=== PATIENT | female | born 1990 | race American Indian/Alaskan Native ===

== ENCOUNTER 2016-12-21 14:43 | Emergency (ER) | payer SELFPAY ==
[2016-12-21] MEDS ORDERED: NACL 0.9% 1000 ML 1,000 ML IV ONE (15:21)
[2016-12-21 15:54] LABS: Bilirubin,Urine NEG (Negative); Blood,Urine NEG (Negative); Ketones,Urine NEG (Negative); Leukocyte Esterase,Urine LG (Negative); Mucus,Urine FEW /HPF; Nitrite,Urine NEG (Negative); Protein,Urine <15 mg/dL mg/dL (Negative); Urobilinogen,Urine < 2.0 mg/dL (<2.0)
[2016-12-21 16:00] LABS: Basophils % (Auto) 0.3 % (0.0-1.8); Eosinophils % (Auto) 1.1 % (0.0-4.3); Hemoglobin 12.7 gm/dl (10.1-14.3); Mean Corpuscular HGB Conc 34 % (30-34); Mean Corpuscular Hemoglobin 31 pg (28-32); Mean Corpuscular Volume 92 fl (79-97); Platelet Count 217 K/mm3 (140-440); Red Blood Count 4.14 M/mm3 (3.65-5.03); Red Cell Distribution Width 12.9 % (13.2-15.2); White Blood Count 9.2 K/mm3 (4.5-11.0)
[2016-12-21 16:16] LABS: Alanine Aminotransferase 20 units/L (7-56); Albumin 3.8 g/dL (3.9-5); Albumin/Globulin Ratio 1.2 %; Alkaline Phosphatase 69 units/L (35-129); Anion Gap 16 mmol/L; Blood Urea Nitrogen 6 mg/dL (7-17); Calcium 9.3 mg/dL (8.4-10.2); Carbon Dioxide 22 mmol/L (22-30); Creatine Kinase 115 units/L (30-135); Glucose 76 mg/dL (65-100); Potassium 3.8 mmol/L (3.6-5.0); Sodium 134 mmol/L (137-145); Total Protein 7.1 g/dL (6.3-8.2)
[2016-12-21] MEDS ORDERED: KEPPRA 1,000 MG in D5W 100 ML IV ONE ×2 (16:25→16:32)
--- NOTE | 2016-12-21 16:25 | Emergency Department Report ---
<JIM CHRISTIE - Last Filed: 12/21/16 21:25> ED General Adult HPI - General Chief complaint: Seizure Stated complaint: SEIZURE Time Seen by Provider: 12/21/16 15:21 - Related Data Previous Rx's Medication Instructions Recorded Last Taken Type levETIRAcetam [Keppra TAB] 1,000 mg PO BID #28 tab 12/21/16 Unknown Rx Allergies Allergy/AdvReac Type Severity Reaction Status Date / Time acetaminophen [From NyQuil] Allergy Unknown Verified 12/21/16 15:16 dextromethorphan HBr Allergy Unknown Verified 12/21/16 15:16 [From NyQuil] doxylamine succinate Allergy Unknown Verified 12/21/16 15:16 [From NyQuil] guaifenesin [From Robitussin] Allergy Unknown Verified 12/21/16 15:16 phenytoin sodium Allergy Unknown Verified 12/21/16 15:16 [From Dilantin] phenytoin sodium extended Allergy Unknown Verified 12/21/16 15:16 [From Dilantin] pseudoephedrine HCl Allergy Unknown Verified 12/21/16 15:16 [From NyQuil] ED Review of Systems ROS: Stated complaint: SEIZURE Other details as noted in HPI ED Past Medical Hx - Medications Home Medications: Home Medications Medication Instructions Recorded Confirmed Last Taken Type levETIRAcetam [Keppra TAB] 1,000 mg PO BID #28 tab 12/21/16 Unknown Rx ED Course Vital Signs 12/21/16 12/21/16 12/21/16 15:00 16:02 16:03 Temperature 98.4 F 98.7 F Pulse Rate 103 H 97 H Respiratory 18 16 16 Rate Blood Pressure 90/62 Blood Pressure 94/60 [Left] O2 Sat by Pulse 98 100 100 Oximetry 12/21/16 21:46 Temperature Pulse Rate 95 H Respiratory 16 Rate Blood Pressure Blood Pressure 110/62 [Left] O2 Sat by Pulse 100 Oximetry ED Medical Decision Making - Lab Data Result diagrams: 12/21/16 15:46 12/21/16 15:46 - Radiology Data Radiology results: report reviewed (CT angiogram chest: No acute findings, no PE ) Critical care attestation.: If time is entered above; I have spent that time in minutes in the direct care of this critically ill patient, excluding procedure time. ED Disposition Clinical Impression: Chest pain in adult, Seizure disorder Disposition: DC- TO HOME OR SELFCARE Condition: Stable Instructions: Chest Pain (ED), Recurrent Seizures Adult (ED) Prescriptions: levETIRAcetam [Keppra TAB] 1,000 mg PO BID #28 tab Referrals: PRIMARY CARE, [Primary Care Provider] - 2-3 Days YOSI-JONNATHAN RODRIGUEZ MD [Staff Physician] - 2-3 Days CATARCHITO BURNS MD [Staff Physician] - 2-3 Days LEWIS MCNEILL MD [Staff Physician] - 2-3 Days <VIKTORIYA CAPONE P - Last Filed: 12/22/16 19:39> ED General Adult HPI - General Source: EMS Mode of arrival: Stretcher Limitations: No Limitations - History of Present Illness Initial comments: Patient with family reports that she experienced 3 seizures today generalized shaking. patient reports non-compliant with Keppra. Reports that she is also. Reports that she has no provider here in [place] and moved to the area from [facility] in August. Reports that she traveled to [place] by vehicle 12 hour commute. -: Gradual, hour(s) Location: chest (reports that she is having chest pain) Radiation: non-radiation Severity scale (0 -10): 2 Quality: aching Consistency: intermittent Improves with: none Worsens with: none Associated Symptoms: chest pain, cough, seizure (3 episodes today). denies: confusion, diaphoresis, fever/chills, headaches, loss of appetite, malaise, nausea/vomiting, rash, shortness of breath, syncope, weakness ED Review of Systems Other: GENERAL: No weight change, fatigue, weakness, fever, chills, or night sweats SKIN: No changes in skin or hair, no itching, no rashes, no jaundice HEAD: No trauma, headache, or visual changes EYES: No blurriness, tearing, itching, acute visual loss, conjunctival discoloration, or scleral icterus EARS: No hearing loss, tinnitus, vertigo, or earache NOSE: runny nose MOUTH: No bleeding gums, hoarseness, sore throat, or swelling CARDIAC: chest pain RESPIRATORY: No shortness of breath, wheeze, cough, sputum production, hemoptysis, pneumonia, asthma, bronchitis, or emphysema GI: No change in appetite, nausea, vomiting, dysphagia, change in bowel frequency, diarrhea, constipation, bleeding, hematemesis, melena, hematochezia, or abdominal pain URINARY: No frequency, urgency, polyuria, dysuria, hematuria, or incontinence MUSCULOSKELETAL: No muscle weakness, joint stiffness, decrease in range of motion, redness, swelling, tenderness NEUROLOGIC: seizures HEMATOLOGIC: No anemia, easy bruising, bleeding, petechiae, or purpura ENDOCRINE: No hot or cold intolerance, sweating, polyuria, polydipsia or, polyphagia no thyroid problems PSYCHIATRIC: No change in mood, no anxiety, no depression ED Past Medical Hx - Past Medical History Previous Medical History?: Yes Hx Sickle Cell Disease: Yes Hx Seizures: Yes Hx Psychiatric Treatment: Yes (bi polar) Hx Asthma: Yes - Surgical History Past Surgical History?: No - Social History Smoking Status: Current Every Day Smoker Substance Use Type: None ED Physical Exam - General Limitations: No Limitations - Other Other exam information: GENERAL: Patient in no acute distress HEAD: Normocephalic, atraumatic EYES: PERRLA, EOM intact, no scleral icterus, no conjunctival hemorrhage, visual duffy and acuity wnl NOSE: No tenderness, discharge, sinus tenderness MOUTH: No erythema, bleeding, exudate HEART: Regular rate and rhythm, no murmur, S1-S2 are auscultated, pulses are symmetric LUNGS: No wheezing, rales, rhonchi, bilateral breath sounds ABDOMEN: Normal bowel sounds, no tenderness, no rebound, no guarding, no masses , no CVA tenderness MUSCULOSKELETAL: Normal joint range of motion, no redness, no swelling, no tenderness NEUROLOGIC: GCS 15, Alert and Oriented x3, Cranial nerves intact, normal sensation, normal strength, normal gait, no cerebellar deficit PSYCHIATRIC: No homicidal or suicidal ideation, no anxiety, no depression, no hallucinations SKIN: Skin is warm and dry, no wounds, no rashes ED Medical Decision Making - Lab Data Result diagrams: 12/21/16 15:46 12/21/16 15:46 - EKG Data Interpretation: no acute changes - Radiology Data Radiology results: report reviewed - Medical Decision Making At 1625 Dr. Mcneill OB recommends Keppra safe in . At 1842 Dr. Mcneill OB recommends CTA chest examination for evaluation possible Pulmonary Embolism in patient. Reports V/Q scan no longer recommended and does not fully evaluate for PE. CTA pending. If negative patient stable for discharge. ED Disposition Is pt being admited?: No
[2016-12-21] MEDS ORDERED: KEPPRA 1,000 MG/NS 0.75% 100ML 1,000 MG/100 ML BAG IV ONE ×2 (17:00→17:57)
[2016-12-21] MEDS ORDERED: BENADRYL ONE (18:11)
[2016-12-21] MEDS ORDERED: DELTASONE ONE (18:12)
[2016-12-21] MEDS ORDERED: DELTASONE PO ONE (18:13)
[2016-12-21] MEDS ORDERED: BENADRYL IV ONE (18:18)
[2016-12-21] MEDS ORDERED: NACL ONE (19:28)
--- NOTE | 2016-12-21 20:30 | Cat Scan Report ---
FINAL REPORT EXAM: CT ANGIO CHEST HISTORY: Pain, chest pain TECHNIQUE: High-resolution helical axial images were obtained of the chest during intravenous administration of iodinated contrast. Images are reconstructed in the sagittal and coronal planes. PRIORS: None. FINDINGS: There is no evidence of pulmonary embolism, the pulmonary arteries opacify normally. The heart and thoracic aorta appear normal. The lungs are clear. Images through the upper abdomen are unremarkable. The bones are unremarkable. IMPRESSION: 1. No evidence of pulmonary embolism. 2. No acute findings in the chest
[2016-12-21 21:46] VITALS: BP 110/62
== END 2016-12-21 21:46 | disposition home or self-care (01) ==
LOC: ED 14:43
DX: O26.899 Other specified pregnancy related conditions, unspecified trimester (principal); G40.909 Epilepsy, unspecified, not intractable, without status epilepticus; R07.9 Chest pain, unspecified; R05 Cough; O99.019 Anemia complicating pregnancy, unspecified trimester; D57.1 Sickle-cell disease without crisis; O99.340 Other mental disorders complicating pregnancy, unspecified trimester; F31.9 Bipolar disorder, unspecified; O99.330 Smoking (tobacco) complicating pregnancy, unspecified trimester; F17.200 Nicotine dependence, unspecified, uncomplicated; J45.909 Unspecified asthma, uncomplicated; O99.519 Diseases of the respiratory system complicating pregnancy, unspecified trimester; Z3A.00 Weeks of gestation of pregnancy not specified; Z88.6 Allergy status to analgesic agent; Z88.8 Allergy status to other drugs, medicaments and biological substances
CPT/HCPCS: 36415; 71275; 80053; 81001; 82550; 84484; 84702; 85025; 85379; 87086; 96361; 96374; 96375; 99285; J1200; J1953; J7030; J7512; Q9967

== ENCOUNTER 2017-01-16 10:45 | Emergency (ER) | payer OTHER ==
--- NOTE | 2017-01-16 10:56 | Emergency Department Report ---
Chief Complaint: Nausea/Vomiting/Diarrhea Stated Complaint: 119 WKS ,ABD AND BACK PAIN Time Seen by Provider: 01/16/17 10:52 - HPI History of Present Illness: PT reports n/v/d since 299. PT is 19 weeks , no vaginal bleeding. 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 [place] sure what she has been exposed to - ROS Review of Systems: + lower abd pain + n/v/d - Exam Physical Exam: PT looks well, non toxic gravid uterus suprapubic tenderness MSE screening note: Focused history and physical exam performed. Due to findings the following was ordered: labs, us ED Disposition for MSE Condition: Stable
[2017-01-16] MEDS ORDERED: ZOFRAN ONE (11:31)
[2017-01-16 11:38] LABS: Basophils % (Auto) 0.2 % (0.0-1.8); Eosinophils % (Auto) 0.6 % (0.0-4.3); Hematocrit 34.6 % (30.3-42.9); Hemoglobin 12.3 gm/dl (10.1-14.3); Mean Corpuscular HGB Conc 35 % (30-34); Mean Corpuscular Hemoglobin 32 pg (28-32); Mean Corpuscular Volume 91 fl (79-97); Platelet Count 234 K/mm3 (140-440); Red Blood Count 3.82 M/mm3 (3.65-5.03); White Blood Count 8.5 K/mm3 (4.5-11.0)
[2017-01-16] MEDS ORDERED: NACL 0.9% 1000 ML 1,000 ML IV ONE ×2 (11:41→11:50)
[2017-01-16 11:50] LABS: Alanine Aminotransferase 11 units/L (7-56); Albumin 3.4 g/dL (3.9-5); Albumin/Globulin Ratio 1.1 %; Alkaline Phosphatase 73 units/L (35-129); Anion Gap 18 mmol/L; Blood Urea Nitrogen 6 mg/dL (7-17); Calcium 8.7 mg/dL (8.4-10.2); Carbon Dioxide 21 mmol/L (22-30); Chloride 103.7 mmol/L (98-107); Glucose 86 mg/dL (65-100); Lipase 19 units/L (13-60); Potassium 3.8 mmol/L (3.6-5.0); Sodium 139 mmol/L (137-145); Total Protein 6.6 g/dL (6.3-8.2)
[2017-01-16 11:50] LABS: Bilirubin,Urine NEG (Negative); Blood,Urine NEG (Negative); Ketones,Urine 20 mg/dL (Negative); Leukocyte Esterase,Urine SM (Negative); Nitrite,Urine NEG (Negative); Protein,Urine <15 mg/dL mg/dL (Negative); Urobilinogen,Urine < 2.0 mg/dL (<2.0)
[2017-01-16] MEDS ORDERED: ZOFRAN IV ONE (11:50)
[2017-01-16 12:14] LABS: RBC,Urine < 1.0 /HPF (0.0-6.0)
[2017-01-16 12:42] LABS: INR 1.1 (0.87-1.13)
[2017-01-16 12:43] LABS: Partial Thromboplastin Time 24.7 Sec. (24.2-36.6)
[2017-01-16 12:46] LABS: Alanine Aminotransferase 5 units/L (7-56); Albumin 2.8 g/dL (3.9-5); Alkaline Phosphatase 60 units/L (35-129); Total Protein 5.7 g/dL (6.3-8.2)
--- NOTE | 2017-01-16 12:48 | Emergency Department Report ---
ED N/V/D HPI - General Chief complaint: Abdominal Pain Stated complaint: 119 WKS ,ABD AND BACK PAIN Time Seen by Provider: 01/16/17 10:52 Source: patient Mode of arrival: Ambulatory Limitations: No Limitations - History of Present Illness MD complaint: nausea, vomiting, diarrhea, abdominal pain -: Gradual Description of Vomiting: food contents, watery, bilious Associated Abdominal Pain: Yes Location: diffuse Radiation: none Severity: mild Quality: cramping Consistency: intermittent Improves with: none Worsens with: none Context: possible food poisoning, sick contacts, other () Associated Symptoms: denies: myalgias, chest pain, cough, diaphoresis, fever/ chills, headaches, loss of appetite, malaise, nausea/vomiting, rash, shortness of breath, syncope - Related Data Previous Rx's Medication Instructions Recorded Last Taken Type levETIRAcetam [Keppra TAB] 1,000 mg PO BID #28 tab 12/21/16 10/01/16 Rx Nitrofurantoin [place]/M-Cryst 100 mg PO Q12HR #14 capsule 01/16/17 Unknown Rx [Macrobid CAP] Allergies Allergy/AdvReac Type Severity Reaction Status Date / Time acetaminophen [From NyQuil] Allergy Unknown Verified 12/21/16 15:16 dextromethorphan HBr Allergy Unknown Verified 12/21/16 15:16 [From NyQuil] doxylamine succinate Allergy Unknown Verified 12/21/16 15:16 [From NyQuil] guaifenesin [From Robitussin] Allergy Unknown Verified 12/21/16 15:16 phenytoin sodium Allergy Unknown Verified 12/21/16 15:16 [From Dilantin] phenytoin sodium extended Allergy Unknown Verified 12/21/16 15:16 [From Dilantin] pseudoephedrine HCl Allergy Unknown Verified 12/21/16 15:16 [From NyQuil] ED Review of Systems ROS: Stated complaint: 119 WKS ,ABD AND BACK PAIN Other details as noted in HPI Comment: All other systems reviewed and negative ED Past Medical Hx - Past Medical History Previous Medical History?: Yes Hx Sickle Cell Disease: Yes Hx Seizures: Yes Hx Psychiatric Treatment: Yes (bi polar) Hx Asthma: Yes Additional medical history: Vaginal delivery x 3 - Surgical History Past Surgical History?: No - Social History Smoking Status: Current Every Day Smoker Substance Use Type: Non Opiate Pain - Medications Home Medications: Home Medications Medication Instructions Recorded Confirmed Last Taken Type levETIRAcetam [Keppra TAB] 1,000 mg PO BID #28 tab 12/21/16 01/16/17 10/01/16 Rx Nitrofurantoin [place]/M-Cryst 100 mg PO Q12HR #14 capsule 01/16/17 Unknown Rx [Macrobid CAP] ED Physical Exam - General Limitations: No Limitations General appearance: alert, in no apparent distress - Head Head exam: Present: atraumatic, normocephalic - Eye Eye exam: Present: normal appearance, PERRL - ENT ENT exam: Present: normal exam, mucous membranes dry - Neck Neck exam: Present: normal inspection - Respiratory Respiratory exam: Present: normal lung sounds bilaterally. Absent: respiratory distress - Cardiovascular Cardiovascular Exam: Present: regular rate, normal rhythm. Absent: systolic murmur, diastolic murmur, rubs, gallop - GI/Abdominal GI/Abdominal exam: Present: soft, normal bowel sounds. Absent: distended, tenderness, guarding - Extremities Exam Extremities exam: Present: normal inspection - Back Exam Back exam: Present: normal inspection. Absent: full ROM, tenderness - Neurological Exam Neurological exam: Present: alert, oriented X3 - Psychiatric Psychiatric exam: Present: normal affect, normal mood - Skin Skin exam: Present: warm, dry, intact, normal color. Absent: rash ED Course Vital Signs 01/16/17 01/16/17 01/16/17 10:49 10:55 11:45 Temperature 98.6 F 98.4 F Pulse Rate 112 H 94 H Respiratory 18 16 16 Rate Blood Pressure 121/68 Blood Pressure 106/64 [Left] O2 Sat by Pulse 100 100 99 Oximetry ED Medical Decision Making - Lab Data Result diagrams: 01/16/17 11:10 01/16/17 11:10 - Radiology Data Radiology results: report reviewed, image reviewed - Medical Decision Making patient been doing well with zofran and ivf , US with normal iup , labs negative and she is tolerating po here in the ER, will dc and follow up with ob Critical care attestation.: If time is entered above; I have spent that time in minutes in the direct care of this critically ill patient, excluding procedure time. ED Disposition Clinical Impression: Vomiting, Vomiting affecting Disposition: DC-01 TO HOME OR SELFCARE Is pt being admited?: No Does the pt Need Aspirin: No Condition: Stable Instructions: Abdominal Pain (ED) Prescriptions: Nitrofurantoin [place]/M-Cryst [Macrobid CAP] 100 mg PO Q12HR #14 capsule Referrals: PRIMARY CARE, [Primary Care Provider] - 3-5 Days BEE COLLADO MD [Staff Physician] - 3-5 Days Forms: Work/School Release Form(ED) Time of Disposition: 13:35
[2017-01-16 12:50] LABS: Bilirubin,Direct < 0.2 mg/dL (0-0.2)
[2017-01-16 13:36] VITALS: BP 106/56
--- NOTE | 2017-01-16 13:36 | Ultrasound Report ---
OB ULTRASOUND GREATER THAN 14 WEEKS INDICATION: Abdominal pain. Right pelvic pain and cramping. No bleeding. COMPARISON: None similar. TECHNIQUE: Transabdominal grayscale ultrasound with Doppler interrogation. Gestation: Butt Position: Cephalic Amniotic Fluid: WNL (< 24 weeks, Subjective) Placenta: Posterior; no evidence of abruption. Placental Grade: I Heart Rate: 169 BPM Cervical length: 3.3 cm (Normal > 3 cm) NEUROANATOMY VISUALIZED: Choroid Plexus Cisterna Magnum Cerebellum Lateral Ventricle ANATOMY VISUALIZED: Stomach Kidneys Bladder Diaphragm 4 Chamber Heart Heart 3 Vessel Cord Abd. Cord Insert SPINE VISUALIZED: Longitudinal Transverse BPD: 4.4 cm = 19 w 2 d HC: 17.1 cm = 19 w 5 d AC: 14.1 cm = 19 w 4 d FL: 3 cm = 19 w 2 d HC/AC Ratio: 1.21 Cephalic Index: 80.7 Estimated Weight: 292 grams LMP: 09/03/2016 Clinical age = 19 w 2 d EDC: 06/10/2017 US Gest. Age = 19 w 3 d EDC: 06/09/2017 CONCLUSION: Single, viable intrauterine gestation with ultrasound estimated age of 19 weeks and 3 days and EDC of 06/09/2017, currently in cephalic lie with details, as above. Thank you for the opportunity to participate in this patient's care.
== END 2017-01-16 13:40 | disposition home or self-care (01) ==
LOC: ED 10:45
DX: O21.9 Vomiting of pregnancy, unspecified (principal); Z3A.19 19 weeks gestation of pregnancy; R56.9 Unspecified convulsions; F31.9 Bipolar disorder, unspecified; J45.909 Unspecified asthma, uncomplicated; D57.80 Other sickle-cell disorders without crisis; F17.200 Nicotine dependence, unspecified, uncomplicated; Z88.8 Allergy status to other drugs, medicaments and biological substances; Z88.1 Allergy status to other antibiotic agents
CPT/HCPCS: 36415; 76805; 80053; 80074; 81001; 83690; 84702; 85025; 85610; 85730; 86900; 86901; 96361; 96374; 99284; J2405; J7030

== ENCOUNTER 2017-03-12 21:56 | Outpatient (CLI) | payer MEDICAID ==
[2017-03-12 22:11] VITALS: BP 102/65
[2017-03-12] MEDS ORDERED: LACTATED RINGERS 1,000 ML IV ONE (22:33)
[2017-03-12 23:11] LABS: Bilirubin,Urine NEG (Negative); Blood,Urine NEG (Negative); Ketones,Urine NEG (Negative); Leukocyte Esterase,Urine NEG (Negative); Mucus,Urine FEW /HPF; Nitrite,Urine NEG (Negative); Protein,Urine <15 mg/dL mg/dL (Negative); Urobilinogen,Urine < 2.0 mg/dL (<2.0)
[2017-03-12] MEDS ORDERED: BENADRYL PO ONE (23:41)
== END 2017-03-13 00:02 | disposition home or self-care (01) ==
LOC: TRG 21:56
PROVIDERS: ATTEND Obstetrics & Gynecology
DX: O99.332 Smoking (tobacco) complicating pregnancy, second trimester (principal); O62.9 Abnormality of forces of labor, unspecified; O26.893 Other specified pregnancy related conditions, third trimester; R10.2 Pelvic and perineal pain; Z3A.27 27 weeks gestation of pregnancy
CPT/HCPCS: 59025; 81001; J7120

== ENCOUNTER 2017-05-17 11:18 | Outpatient (CLI) | payer MEDICAID ==
--- NOTE | 2017-05-17 12:36 | Ultrasound Report ---
BIOPHYSICAL PROFILE: INDICATION: well being. COMPARISON: None similar. TECHNIQUE: Transabdominal ultrasound with Doppler interrogation. 2 - breathing movements 2 - movements 2 - posture and tone 2 - Qualitative amniotic fluid volume 8 - TOTAL SCORE OF POSSIBLE 8 Heart Rate (bpm) 152 CONCLUSION: Findings, as above.
--- NOTE | 2017-05-17 12:38 | Ultrasound Report ---
OB LIMITED INDICATION: DONNIE. COMPARISON: 01/16/2017 TECHNIQUE: Transabdominal grayscale ultrasound with Doppler interrogation. Gestation: Butt Position: Cephalic Amniotic Fluid: WNL (7-24 cm) DONNIE = 16.3 cm Heart Rate: 152 BPM CONCLUSION: Findings, as above.
[2017-05-17 12:42] VITALS: BP 101/59
== END 2017-05-17 13:35 | disposition home or self-care (01) ==
LOC: TRG 11:18
PROVIDERS: ATTEND Obstetrics & Gynecology
DX: O99.333 Smoking (tobacco) complicating pregnancy, third trimester (principal); O47.03 False labor before 37 completed weeks of gestation, third trimester; Z3A.36 36 weeks gestation of pregnancy
CPT/HCPCS: 59025; 76815; 76819

== ENCOUNTER 2017-05-30 20:19 | Inpatient (IN) | payer MEDICAID ==
--- NOTE | 2017-05-30 21:08 | History and Physical Report ---
History of Present Illness Date of examination: 05/30/17 Date of admission: 05/30/17 20:19 Chief complaint: IOL @ 38+3 weeks for cholestasis with elevated LFTs. History of present illness: EDC Calculations LMP: 06/10/2017 Past History : 4 Term Births: 2 Premature Births: 1 Living Children: 2 Para: 3 # 1 Delivery date: 03/24/2007 Weeks Gestation: 39 labor: no Delivery type: Anesthesia type: none Delivery location: [facility] Infant Sex: Male weight: 5-15 # 2 Delivery date: 05/30/2010 Weeks Gestation: 37 labor: no Delivery type: Delivery location: [facility] Infant Sex: Male weight: 3-16 Comments: stillbirth, breech, not on monitor, "no bones in face" # 3 Delivery date: 05/11/2011 Weeks Gestation: 40 Delivery type: Delivery location: [place] Infant Sex: Female weight: 7-1 Past Medical History: Asthma 0- rare inhaler use Epilepsy - stopped medicine Dilantin and Keppra while --rarely has seizures migraines Sickle Trait ALLERGIC to all ..LILIAM drugs (lidocaine, marcaine) cannot have epidural Past Surgical History: Reviewed history and no changes required: negative Past Medical History Anesthesia Complications: positive, severe allergy to mar/lidocaine Anemia: negative Autoimmune Disorder: negative Bleeding Disorder: negative Blood Transfusions: negative Breast Disease: negative Diabetes: negative Heart Disease: negative Hypertension: negative Hepatitis/Liver Disease: negative Kidney Disease/UTI: negative Neurologic/Epilepsy/Migraines: positive Phlebitis/Varicosities: negative Psychiatric: negative Pulmonary Disease/Asthma: positive Thyroid Disease: negative Hospitalizations: negative 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 of genital herpes: no Partner hx. of genital herpes: no Varicella/Chicken Pox Status: Previous Disease TB Risk: no Genetic History Congenital Heart Defect: Mom: no Dad: no Robel Disease: Mom: no Dad: no Thalassemia Mom: no Dad: no Neural Tube Defect Mom: no Dad: no Down's Syndrome Mom: no Dad: no Uziel-Sachs Mom: no Dad: no Sickle Cell Disease/Trait Mom: yes Dad: no Hemophilia Mom: no Dad: no Muscular Dystrophy Mom: no Dad: no Cystic Fibrosis Mom: no Dad: no [place] Chorea Mom: no Dad: no Mental Retardation Mom: no Dad: no Fragile X Mom: no Dad: no Other Genetic/Chromosomal Disorder Mom: no Dad: no Child w/other defect Mom: no Dad: no Enviromental Exposures Xray Exposure: no Medication, drug, or alcohol use since LMP: no Chemical/Other Exposure: no Active Medications (reviewed today): PNV () ZOFRAN () Current Allergies (reviewed today): * EPIDURAL (Critical) * ANY FORM OF LIQUID BASE MEDICATION (Critica Past History Past Medical History: other (see HPI) Past Surgical History: other (See HPI) 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 (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) Family/Genetic History: other (see HPI) - Obstetrical History Expected Date of Delivery: 06/10/17 Actual Gestation: 38 Week(s) 3 Day(s) : 4 Para: 3 Hx # Term Pregnancies: 3 Number of Pregnancies: 0 Spontaneous Abortions: 0 Induced : 0 Number of Living Children: 2 Medications and Allergies Allergies Allergy/AdvReac Type Severity Reaction Status Date / Time acetaminophen [From NyQuil] Allergy Unknown Verified 12/21/16 15:16 dextromethorphan HBr Allergy Unknown Verified 12/21/16 15:16 [From NyQuil] doxylamine succinate Allergy Unknown Verified 12/21/16 15:16 [From NyQuil] guaifenesin [From Robitussin] Allergy Unknown Verified 12/21/16 15:16 phenytoin sodium Allergy Unknown Verified 12/21/16 15:16 [From Dilantin] phenytoin sodium extended Allergy Unknown Verified 12/21/16 15:16 [From Dilantin] pseudoephedrine HCl Allergy Unknown Verified 12/21/16 15:16 [From NyQuil] Home Medications Medication Instructions Recorded Confirmed Last Taken Type levETIRAcetam [Keppra TAB] 1,000 mg PO BID #28 tab 12/21/16 01/16/17 10/01/16 Rx Nitrofurantoin Dale/M-Cryst 100 mg PO Q12HR #14 capsule 01/16/17 Unknown Rx [Macrobid CAP] Ondansetron [Zofran Odt] 4 mg PO BID #12 tab.rapdis 01/16/17 Unknown Rx Review of Systems All systems: negative - Vital Signs Vital signs: Vital Signs Pulse Pulse Ox 109 H 100 05/30/17 20:55 05/30/17 20:55 Temp Pulse Resp BP Pulse Ox 103 H 100 05/30/17 21:05 05/30/17 21:05 - Physical Exam Breasts: Positive: normal Cardiovascular: Regular rate Lungs: Positive: Clear to auscultation, Normal air movement Abdomen: Positive: normal appearance, soft Genitourinary (Female): Positive: normal external genitalia, normal perenium Vulva: both: normal Vagina: Positive: normal moisture Uterus: Positive: normal size Anus/Rectum: Positive: normal perianal skin Extremities: Positive: normal - Obstetrical FHR: auscultation normal Uterine Contraction Monitor Mode: External Cervical Dilatation: 1 Uterine Tone Measurement Phase: Resting Results Result Diagrams: 05/30/17 21:20 All other labs normal. Patient: MARIBEL LANDRY ID: [id number] Note: All result statuses are Final unless otherwise noted. Tests: (1) Profile I ([id number]) HBsAg Screen Negative Negative *1 Rubella Antibodies, IgG 2.04 index Immune >0.99 *2 Non-immune <0.90 Equivocal 0.90 - 0.99 Immune >0.99 ABO Grouping O *3 Rh Factor Positive *4 Please note: Prior records for this patient's ABO / Rh type are not available for additional verification. Antibody Screen See Final Results Negative *5 Tests: (2) Ab Scr+Antibody ID ([id number]) ! Antibody Screen [A] Positive Negative *6 ! Antibody Id. #1 [id number] *7 The patient's serum showed nonspecific reactivity in the antiglobulin phase of testing. Additional testing did not identify a clinically significant antibody. It is possible that the antibody is too weak to identify. We recommend repeat testing in 4 weeks. ! Keagan Titer #1 <No Reported Value> *8 ! Antibody Id. #2 <No Reported Value> *9 ! Keagan Titer #2 <No Reported Value> *10 Tests: (3) Profile I ([id number]) RPR Non Reactive Non Reactive *11 WBC [H] 11.4 x10E3/uL 3.4-10.8 *12 RBC 3.84 x10E6/uL 3.77-5.28 *13 Hemoglobin 11.9 g/dL 11.1-15.9 *14 Hematocrit 37.4 % 34.0-46.6 *15 MCV 97 fL 79-97 *16 MCH 31.0 pg 26.6-33.0 *17 MCHC 31.8 g/dL 31.5-35.7 *18 RDW 13.3 % 12.3-15.4 *19 Platelets 265 x10E3/uL 150-379 *20 Neutrophils 74 % *21 Lymphs 18 % *22 Monocytes 6 % *23 Eos 2 % *24 Basos 0 % *25 ! Immature Cells <No Reported Value> *26 Neutrophils (Absolute) [H] 8.4 x10E3/uL 1.4-7.0 *27 Lymphs (Absolute) 2.1 x10E3/uL 0.7-3.1 *28 Monocytes(Absolute) 0.7 x10E3/uL 0.1-0.9 *29 Eos (Absolute) 0.2 x10E3/uL 0.0-0.4 *30 Baso (Absolute) 0.0 x10E3/uL 0.0-0.2 *31 ! Immature Granulocytes 0 % *32 ! Immature Grans (Abs) 0.0 x10E3/uL 0.0-0.1 *33 ! NRBC <No Reported Value> *34 Hematology Comments: <No Reported Value> *35 Tests: (4) AFP Tetra ([id number]) ! Results Report *36 ! Test Results: *Screen Negative* *37 ! Gest. Age on Collection Date 21.4 WEEKS *38 ! Gestat. Age Based On EFE *39 06/10/2017 ! Maternal Age At EFE 27.0 YEARS *40 ! Race Black *41 ! Weight 166 lbs *42 ! Insulin Dep Diabetes No *43 ! Multiple Gestation No *44 ! AFP Value 88.2 ng/mL *45 ! AFP MoM 1.29 *46 ! hCG Value 28566 mIU/mL *47 ! hCG MoM 0.94 *48 ! uE3 Value 1.53 ng/mL *49 ! uE3 MoM 0.70 *50 ! JANAE Value 309.25 pg/mL *51 ! JANAE MoM 1.51 *52 ! OSBR Risk 1 IN 9893 *53 ! DSR (Second Trimester) 1 IN 1905 *54 ! DSR (By Age) 1 IN *55 ! T18 Risk Not increased *56 ! T18 (By Age) 1:3600 *57 ! Interpretation NL42 *58 Interpretation: Screen Negative This result is screen negative for OSB, Down Syndrome and Trisomy 18. The AFP MoM and patient specific risks calculated are based on the gestational age and the clinical information provided. This test can identify up to 80% of open neural tube defects. Closed neural tube defects and some open defects may not be detected by this test. The combination of maternal age, AFP, hCG, uE3, and JANAE identifies 75-80% of Down Syndrome. The combination of maternal age, AFP, hCG and uE3 identifies 60% of Trisomy 18 pregnancies. The [place] [employer] [employer] recommends amniocentesis be offered to women age 35 and older. Recalculations are not recommended when gestational dating by LMP and ultrasound are within 10 days. ! Comments: SPR *59 Linette Cummings, PhD, [facility] Director, Biochemical and Molecular Genetics References: Available Upon Request. Multiples Of Median Cutoffs Abbreviation Definitions For AFP Elevations IDD- Insulin Dep Diabetes Butt 2.5 Black 2.8 OSBR- Open Spina Bifida IDD 2.0 Twins 4.5 Risk DSR Cutoff 1:270 DSR- Down Syndrome Risk T18 Cutoff 1:100 T18- Trisomy 18 Down Syndrome and Trisomy 18 screening are considered Investigational For further inquiries contact [employer] at [phone]. ! PDF . *60 Tests: (5) SMN1 Copy Number Analysis ([id number]) ! Genetic Counselor: Not applicable *61 ! Client Specimen ID: Not applicable *62 ! Specimen Type: [facility] *63 Peripheral Blood ! Specimen(s) Received: SPR *64 1 - Yellow (ACD) 10 ml round bottom tube(s) ! Clinical Data: SPR *65 Not Provided ! Ethnicity: [facility] *66 Not Provided ! SMA Results: SPRCS *67 SMN1 copy number: 2 (Reduced Carrier Risk) ! SMA Interpretation: Note *68 This individual has an SMN1 copy number of two. This result reduces but does not eliminate the risk to be a carrier of SMA. Information regarding clinical indication may provide a more detailed interpretation. ! Comments: Note *69 Spinal muscular atrophy (SMA) is an autosomal recessive disease of variable age of onset and severity caused by mutations (most often deletions or gene conversions) in the survival motor neuron (SMN1) gene. Molecular testing assesses the number of copies of the SMN1 gene. Individuals with one copy of the SMN1 gene are predicted to be carriers of SMA. Individuals with two or more copies have a reduced risk to be carriers. (Affected individuals have 0 copies of the SMN1 gene.) This copy number analysis cannot detect individuals who are carriers of SMA as a result of either 2 (or very rarely 3) copies of the SMN1 gene on one chromosome and the absence of the SMN1 gene on the other chromosome or small intragenic mutations within the SMN1 gene. This analysis also will not detect germline mosaicism or mutations in genes other than SMN1. Additionally, de abdiel mutations have been reported in approximately 2% of SMA patients. ! Carrier Detection Rate: Note *70 Carrier Frequency and Risk Reductions for Individuals with No Family History of SMA Reduced Reduced Carrier Carrier Prior Risk for Risk for Detection Carrier 2 copy 3 copy Ethnicity rate(1) Risk(1) result result 94.8% 1:47 1:834 1:5,600 Ashkenazi [employer] 90.5% 1:67 1:611 1:5,400 93.3% 1:59 1:806 1:5,600 90.0% 1:68 1:579 1:5,400 70.5% 1:72 1:130 1:4,200 Sierra Leonean 90.2% 1:52 1:443 1:5,400 ! Method/Limitations: Note *71 METHOD/LIMITATIONS: Specimen DNA is isolated and amplified by real-time polymerase chain reaction (PCR) for exon 7 of the SMN1 gene and the internal standard reference genes. A mathematical algorithm is used to calculate and report SMN1 copy numbers of 0, 1, 2 and 3. Based upon this analysis, an upper limit of 3 represents the highest degree of accuracy in reporting SMN1 copy number with statistical confidence. Sequencing of the primer and probe binding sites is performed on all samples and samples with one copy of SMN1 by real-time PCR to rule out the presence of sequence variants which could interfere with analysis and interpretation. False positive or negative results may occur for reasons that include genetic variants, blood transfusions, bone marrow transplantation, erroneous representation of family relationships or contamination of a sample with maternal cells. ! References: Note *72 REFERENCES: 1. Domingo JONAS, Bernie N, Munoz H, et al. Solomon-ethnic carrier screening and diagnosis for spinal muscular atrophy: clinical laboratory analysis of >72,400 specimens. Eur J Hum [place] 2012; 20:27-32. 2. Prior BANSAL et al. Technical standards and guidelines for spinal muscular atrophy testing. [place] Med 2011; 13(7): 686-694. ! Disclaimer: Note *73 The test was developed and its performance characteristics have been determined by [employer] The laboratory is regulated under the Clinical Laboratory Improvement Amendments of 1988 (CLIA) as qualified to perform high complexity clinical testing. This test must be used in conjunction with clinical assessment, when available. [employer] is a business unit of [employer] a wholly-owned subsidiary of [employer]. ! Electronically Signed by: [facility] *74 Sera Munoz, Ph.D. [facility], Tests: (6) Cystic Fibrosis Profile ([id number]) ! CF, Screen Comment: *75 RESULTS: Negative for 32 mutations analyzed INTERPRETATION: This individual is negative for the mutations analyzed. This negative result may need further interpretation depending on the clinical indication. This result reduces but does not eliminate the risk to be a CF carrier. COMMENTS: The detection rate varies with ethnicity and is listed below. The presence of an undetected mutation in the CF gene cannot be ruled out. In the absence of family history, the remaining risk that a person with a negative result could have at least one CF mutation is listed in the table. If there is a family history of CF, these risk figures do not apply. As detailed information regarding this individual's family history would permit a more accurate assessment of this individual's risk to be a carrier of cystic fibrosis, please contact [employer] at for a revised report. Mutation Detection Detection rates are based on mutation Rates among Ethnic frequencies in patients affected with Groups cystic fibrosis. Among individuals with an atypical or mild presentation (e.g. congenital absence of the vas deferens, pancreatitis) detection rates may vary from those provided here: Carrier risk reduction when no family history Detection Ethnicity Rate Ashkenazi 07/28 to 97% Methodist 07/27 to 90% (non-) -[place] 65 to 69% 46 to 73% to 55% This interpretation is based on the clinical and family relationship information provided and the current understanding of the molecular genetics of this condition. MUTATIONS ANALYZED: G85E V520F B3527B 2183AA to G R117H G542X J8802B 2184delA R334W S549N 394delTT 2789+5G to A R347H S549R 621+1G to T 3120+1G to A R347P G551D 711+1G to T 3659delC A455E R553X 1078delT 3849+10kbC to T AkohaP258 R560T 1717-1G to A 3876delA GhghaN965 U2155E 1898+1G to A 3905insT METHODS/LIMITATIONS: DNA is isolated from the sample and tested for the 32 CF mutations on the [place] Array Platform ([employer]). Regions of the CFTR gene are amplified enzymatically and subjected to a solution-phase multiplex allele-specific primer extension with subsequent hybridization to a bead array and fluorescence detection. Polymorphisms F508C, I506V and I507V are included in this panel to rule out false positive [id number] homozygotes. Reflex testing of 5T is included in the panel for R117H interpretation. False positive or negative results may occur for reasons that include genetic variants, blood transfusions, bone marrow transplantation, erroneous representation of family relationships or contamination of a sample with maternal cells. REFERENCES: 1. Updates on Carrier Screening for Cystic Fibrosis. (2011) Am J Ob Gynecol 117(4):6901-0782 2. Garland, et al. (2004) Erin Med 6:387-91 3. Valery, et al. (2002) [place] Med 4:379-391 4. Preconception and carrier screening for cystic fibrosis: (2001)ACOG.ACMG publication Results Released By: Kt Chowdary M.D., [employer] Report Released By: Kt Chowdary M.D., [employer] ! Comment: SPR *76 The assay provides information intended to be used for carrier screening in adults of reproductive age, as an aid in screening, and as a confirmatory test for another medically established diagnosis in newborns and children. The test is not indicated for use in diagnostic testing, pre-implantation screening, or for any stand-alone diagnostic purposes without confirmation by another medically established diagnostic product or procedure. Tests: (7) HB Solu + Rflx Frac ([id number]) Hemoglobin (Hgb) Solubility [A] Positive Negative *77 Tests: (8) Hemoglobin Frac.w/o Solubility (777913) ! Hgb F 0.0 % 0.0-2.0 *78 ! Hgb A [L] 55.5 % 94.0-98.0 *79 ! Hgb S [H] 40.9 % 0.0 *80 ! Hgb C 0.0 % 0.0 *81 ! Hgb A2 [H] 3.6 % 0.7-3.1 *82 ! Hgb Variant <No Reported Value> *83 ! Interpretation HGAS1 *84 Hemoglobin pattern and concentration are consistent with sickle cell trait (heterozygous). Suggest clinical and hematologic correlation. Sickle Trait Interpretation Ranges Hgb A 50.0 - 70.0% Hgb S 30.0 - 45.0% Hgb A2 3.0 - 5.0%* *Hgb A2 values are seen to be increased over normal levels. This increase is typically due to interference from co-eluting Hgb S-subunits with the HPLC method and therefore the Hgb A2 interpretation ranges have been adjusted. Tests: (9) Panel 026478 ([id number]) HIV Screen 4th Generation wRfx Non Reactive Non Reactive *85 Tests: (10) HCV Ab w/Rflx to Verification (998906) ! HCV Ab <0.1 s/co ratio 0.0-0.9 *86 ests: (1) Strep Gp B MELO (715449) Order Note: Clinical Information: SRC:VR ! Strep Gp B MELO Negative Tests: (1) Chlamydia/GC Amplification (235260) Order Note: Clinical Information: SRC:UR SRC:UR Chlamydia trachomatis, MELO Negative Negative *1 Neisseria gonorrhoeae, MELO Negative Negative *2 Tests: (2) RPR, Rfx Qn RPR/Confirm TP (314709) RPR Non Reactive Non Reactive *3 Tests: (3) Panel 053588 (591216) HIV Screen 4th Generation wRfx Non Reactive Non Reactive *4 Assessment and Plan 27y/o @ 38+3 weeks, , GBS negative. complicated by late care @ 21 weeks, epilepsy on no meds during , SST, and most recently dx with cholestasis for which delivery is indicated at this time. Dr. Florez consulted. Admission orders in EMR. - Patient Problems (1) 38 weeks gestation of Current Visit: Yes Status: Acute (2) Cholestasis during in third trimester Current Visit: Yes Status: Acute Plan to address problem: Induction, cervical ripening (3) Epilepsy Current Visit: Yes Status: Acute (4) Asthma Current Visit: Yes Status: Acute (5) Migraines Current Visit: Yes Status: Acute (6) Sickle cell trait Current Visit: Yes Status: Acute (7) Elevated liver function tests Current Visit: Yes Status: Acute Plan to address problem: recheck on admission Last drawn in office 05/24/17: Tests: (1) Hepatic Function Panel (7) (146292) Protein, Total, Serum [L] 5.9 g/dL 6.0-8.5 *1 Albumin, Serum [L] 3.4 g/dL 3.5-5.5 *2 Bilirubin, Total 0.3 mg/dL 0.0-1.2 *3 Bilirubin, Direct 0.16 mg/dL 0.00-0.40 *4 Alkaline Phosphatase, S [H] 221 IU/L 39-117 *5 AST (SGOT) [H] 65 IU/L 0-40 *6 ALT (SGPT) [H] 80 IU/L 0-32 *7
[2017-05-30] MEDS ORDERED: BRETHINE SUB-Q PRN (21:23)
[2017-05-30] MEDS ORDERED: SUBLIMAZE IV PRN (21:23)
[2017-05-30] MEDS ORDERED: ePHEDrine SULFATE IV PRN (21:23)
[2017-05-30] MEDS ORDERED: ZOFRAN IV PRN (21:23)
[2017-05-30] MEDS ORDERED: MINERAL OIL PO PRN (21:23)
[2017-05-30] MEDS ORDERED: XYLOCAINE 2% INFILTRATI ONE (21:23)
[2017-05-30 21:39] LABS: Hematocrit 31.3 % (30.3-42.9); Hemoglobin 10.6 gm/dl (10.1-14.3); Mean Corpuscular HGB Conc 34 % (30-34); Mean Corpuscular Hemoglobin 32 pg (28-32); Mean Corpuscular Volume 94 fl (79-97); Platelet Count 260 K/mm3 (140-440); Red Blood Count 3.31 M/mm3 (3.65-5.03); Red Cell Distribution Width 12.9 % (13.2-15.2); White Blood Count 12.3 K/mm3 (4.5-11.0)
[2017-05-30 21:56] LABS: Alanine Aminotransferase 106 units/L (7-56); Albumin 3.5 g/dL (3.9-5); Albumin/Globulin Ratio 1.2 %; Alkaline Phosphatase 253 units/L (35-129); Total Protein 6.5 g/dL (6.3-8.2)
[2017-05-30 21:57] LABS: Bilirubin,Direct < 0.2 mg/dL (0-0.2); Bilirubin,Indirect 0.1 mg/dL
[2017-05-30] MEDS ORDERED: PITOCin/NS 30 UNIT/500ML 30 UNITS/500 ML BAG IV SCH (22:00)
[2017-05-30] MEDS ORDERED: PITOCin/NS 20 UNIT/1000ML DRIP 20 UNITS/1,000 ML BAG IV SCH (22:00)
[2017-05-30] MEDS ORDERED: CERVIDIL VG ONE (22:10)
[2017-05-31] MEDS: BENADRYL IV PRN ×2 (01:37→23:30)
[2017-05-31] MEDS: LACTATED RINGERS 1,000 ML IV SCH ×3 (03:53→19:29)
--- NOTE | 2017-05-31 05:52 | Progress Note ---
Assessment and Plan L2 @ 38 weeks with Cholestasis and elevated LFT IOL Cervidil in place to be removed @ 0800; allow AM care and diet; plane to start pitocin @ 0900 SVE cervix 2 cm soft, vertex. All questions addressed. Subjective - Subjective Date of service: 05/31/17 (pt resting) Patient reports: movement normal Objective - Vital Signs Vital Signs: Vital Signs - 12hr 05/30/17 05/30/17 05/30/17 20:55 21:00 21:05 Temperature Pulse Rate 109 H 109 H 103 H Respiratory Rate Blood Pressure O2 Sat by Pulse 100 100 100 Oximetry 05/30/17 05/30/17 05/30/17 21:10 21:15 21:20 Temperature Pulse Rate 103 H 108 H 105 H Respiratory Rate Blood Pressure O2 Sat by Pulse 99 100 100 Oximetry 05/30/17 05/30/17 05/30/17 21:25 21:30 21:33 Temperature Pulse Rate 117 H 110 H 50 L Respiratory Rate Blood Pressure O2 Sat by Pulse 100 100 53 L Oximetry 05/30/17 05/30/17 05/30/17 21:35 21:40 21:45 Temperature Pulse Rate 106 H 110 H 113 H Respiratory Rate Blood Pressure O2 Sat by Pulse 98 99 99 Oximetry 05/30/17 05/30/17 05/30/17 22:11 22:12 22:16 Temperature Pulse Rate 109 H 114 H 107 H Respiratory Rate Blood Pressure 99/56 O2 Sat by Pulse 99 98 Oximetry 05/30/17 05/30/17 05/30/17 22:21 22:26 22:31 Temperature Pulse Rate 117 H 106 H 110 H Respiratory Rate Blood Pressure O2 Sat by Pulse 100 98 98 Oximetry 05/30/17 05/30/17 05/30/17 22:36 22:41 22:46 Temperature Pulse Rate 111 H 112 H 115 H Respiratory Rate Blood Pressure O2 Sat by Pulse 98 98 98 Oximetry 05/30/17 05/30/17 05/30/17 22:52 23:03 23:08 Temperature 98.1 F Pulse Rate 104 H 104 H Respiratory 20 Rate Blood Pressure 112/64 O2 Sat by Pulse 99 97 Oximetry 05/30/17 05/30/17 05/30/17 23:13 23:19 23:23 Temperature Pulse Rate 111 H 105 H 102 H Respiratory Rate Blood Pressure O2 Sat by Pulse 98 99 98 Oximetry 05/30/17 05/30/17 05/30/17 23:29 23:34 23:38 Temperature Pulse Rate 109 H 105 H 95 H Respiratory Rate Blood Pressure O2 Sat by Pulse 98 99 98 Oximetry 05/30/17 05/30/17 05/30/17 23:43 23:49 23:54 Temperature Pulse Rate 102 H 98 H 106 H Respiratory Rate Blood Pressure O2 Sat by Pulse 99 98 97 Oximetry 05/30/17 05/31/17 05/31/17 23:59 00:04 00:08 Temperature Pulse Rate 102 H 114 H 108 H Respiratory Rate Blood Pressure O2 Sat by Pulse 98 98 99 Oximetry 05/31/17 05/31/17 05/31/17 00:14 00:16 00:19 Temperature 98.0 F Pulse Rate 105 H 112 H 109 H Respiratory 20 Rate Blood Pressure 110/68 O2 Sat by Pulse 98 98 Oximetry 05/31/17 05/31/17 05/31/17 00:24 00:29 00:34 Temperature Pulse Rate 108 H 109 H 103 H Respiratory Rate Blood Pressure O2 Sat by Pulse 99 99 99 Oximetry 05/31/17 05/31/17 05/31/17 00:39 00:44 00:49 Temperature Pulse Rate 118 H 101 H 111 H Respiratory Rate Blood Pressure O2 Sat by Pulse 98 98 98 Oximetry 05/31/17 05/31/17 05/31/17 00:54 00:59 01:15 Temperature Pulse Rate 110 H 108 H 111 H Respiratory Rate Blood Pressure O2 Sat by Pulse 98 96 100 Oximetry 05/31/17 05/31/17 05/31/17 01:20 01:25 01:30 Temperature Pulse Rate 119 H 101 H 108 H Respiratory Rate Blood Pressure O2 Sat by Pulse 98 98 99 Oximetry 05/31/17 05/31/17 05/31/17 01:35 01:40 01:45 Temperature Pulse Rate 112 H 105 H 107 H Respiratory Rate Blood Pressure O2 Sat by Pulse 99 98 100 Oximetry 05/31/17 05/31/17 05/31/17 01:50 01:55 02:00 Temperature Pulse Rate 94 H 111 H 109 H Respiratory Rate Blood Pressure O2 Sat by Pulse 100 100 99 Oximetry 05/31/17 05/31/17 05/31/17 02:05 02:10 02:15 Temperature Pulse Rate 103 H 103 H 105 H Respiratory Rate Blood Pressure O2 Sat by Pulse 99 98 98 Oximetry 05/31/17 05/31/17 05/31/17 02:20 02:25 02:34 Temperature Pulse Rate 106 H 106 H 109 H Respiratory Rate Blood Pressure O2 Sat by Pulse 98 98 99 Oximetry 05/31/17 05/31/17 05/31/17 02:40 02:45 02:50 Temperature Pulse Rate 106 H 107 H 107 H Respiratory Rate Blood Pressure O2 Sat by Pulse 98 98 98 Oximetry 05/31/17 05/31/17 05/31/17 02:55 03:00 03:05 Temperature Pulse Rate 105 H 107 H 105 H Respiratory Rate Blood Pressure O2 Sat by Pulse 98 98 98 Oximetry 05/31/17 05/31/17 05/31/17 03:10 03:15 03:20 Temperature Pulse Rate 105 H 105 H 103 H Respiratory Rate Blood Pressure O2 Sat by Pulse 98 97 98 Oximetry 05/31/17 05/31/17 05/31/17 03:25 03:30 03:35 Temperature Pulse Rate 104 H 105 H 102 H Respiratory Rate Blood Pressure O2 Sat by Pulse 98 98 98 Oximetry 05/31/17 05/31/17 05/31/17 03:40 03:45 03:50 Temperature Pulse Rate 102 H 108 H 103 H Respiratory Rate Blood Pressure O2 Sat by Pulse 98 98 98 Oximetry 05/31/17 05/31/17 05/31/17 03:52 03:54 03:55 Temperature 98.2 F Pulse Rate 102 H 104 H Respiratory 22 Rate Blood Pressure 109/65 O2 Sat by Pulse 97 Oximetry 05/31/17 05/31/17 05/31/17 04:01 04:06 04:11 Temperature Pulse Rate 94 H 98 H 101 H Respiratory Rate Blood Pressure O2 Sat by Pulse 98 99 99 Oximetry 05/31/17 05/31/17 05/31/17 04:16 04:21 04:26 Temperature Pulse Rate 98 H 97 H 97 H Respiratory Rate Blood Pressure O2 Sat by Pulse 99 99 99 Oximetry 05/31/17 05/31/17 05/31/17 04:31 04:36 04:41 Temperature Pulse Rate 96 H 95 H 93 H Respiratory Rate Blood Pressure O2 Sat by Pulse 99 99 99 Oximetry 05/31/17 05/31/17 05/31/17 04:46 04:51 04:56 Temperature Pulse Rate 92 H 95 H 90 Respiratory Rate Blood Pressure O2 Sat by Pulse 99 99 99 Oximetry 05/31/17 05/31/17 05/31/17 05:01 05:06 05:11 Temperature Pulse Rate 95 H 91 H 93 H Respiratory Rate Blood Pressure O2 Sat by Pulse 99 97 97 Oximetry - Exam Breasts: deferred Cardiovascular: Regular rate Lungs: Normal air movement Abdomen: Present: normal appearance, soft. Absent: distention, tenderness Uterus: Present: normal FHR: auscultation normal, category 1 Uterine Contraction Monitor Mode: External Cervical Dilatation: 2 (cervidil in place) Cervical Effacement Percentage: 50 station: -2 Uterine Contraction Pattern: Irregular Uterine Tone Measurement Phase: Resting Uterine Contraction Intensity: Moderate Extremities: normal Deep Tendon Reflex Grade: Normal +2 - Labs Labs: Abnormal Labs 05/30/17 05/30/17 21:20 21:20 WBC 12.3 H RBC 3.31 L RDW 12.9 L AST 81 H ALT 106 H Alkaline Phosphatase 253 H Albumin 3.5 L Laboratory Results - last 24 hr 05/30/17 05/30/17 05/30/17 21:20 21:20 21:20 WBC 12.3 H RBC 3.31 L Hgb 10.6 Hct 31.3 MCV 94 MCH 32 MCHC 34 RDW 12.9 L Plt Count 260 Total Bilirubin 0.30 Direct Bilirubin < 0.2 Indirect Bilirubin 0.1 AST 81 H ALT 106 H Alkaline Phosphatase 253 H Total Protein 6.5 Albumin 3.5 L Albumin/Globulin Ratio 1.2 Blood Type O POSITIVE Antibody Screen Negative
[2017-05-31] MEDS ORDERED: PITOCin/NS 30 UNIT/500ML 30 UNITS/500 ML BAG IV SCH (07:00)
[2017-05-31] MEDS: PITOCin/NS 30 UNIT/500ML 30 UNITS/500 ML BAG IV SCH ×5 (11:09→15:22)
[2017-05-31] MEDS ORDERED: NUBAIN IV ONE (14:00)
[2017-05-31] MEDS ORDERED: VISTARIL IM ONE (14:00)
--- NOTE | 2017-05-31 15:26 | Progress Note ---
Assessment and Plan - Patient Problems (1) Cholestasis during in third trimester Onset Date: ~05/31/17 Current Visit: Yes Status: Acute Plan to address problem: Pt called out c/o itching Nubain IV given SVE no chg from AM exam Pit @ 12mu will continue to increase per protocol. Re-eval as needed. Pt is aware of poss use of Cervidil again tonight All questions addressed. Subjective - Subjective Date of service: 05/31/17 (pt's called out asking for pt to be examined) Patient reports: movement normal, contractions Objective - Vital Signs Vital Signs: Vital Signs - 12hr 05/31/17 05/31/17 05/31/17 03:30 03:35 03:40 Temperature Pulse Rate 105 H 102 H 102 H Respiratory Rate Blood Pressure O2 Sat by Pulse 98 98 98 Oximetry 05/31/17 05/31/17 05/31/17 03:45 03:50 03:52 Temperature Pulse Rate 108 H 103 H 102 H Respiratory Rate Blood Pressure 109/65 O2 Sat by Pulse 98 98 Oximetry 05/31/17 05/31/17 05/31/17 03:54 03:55 04:01 Temperature 98.2 F Pulse Rate 104 H 94 H Respiratory 22 Rate Blood Pressure O2 Sat by Pulse 97 98 Oximetry 05/31/17 05/31/17 05/31/17 04:06 04:11 04:16 Temperature Pulse Rate 98 H 101 H 98 H Respiratory Rate Blood Pressure O2 Sat by Pulse 99 99 99 Oximetry 05/31/17 05/31/17 05/31/17 04:21 04:26 04:31 Temperature Pulse Rate 97 H 97 H 96 H Respiratory Rate Blood Pressure O2 Sat by Pulse 99 99 99 Oximetry 05/31/17 05/31/17 05/31/17 04:36 04:41 04:46 Temperature Pulse Rate 95 H 93 H 92 H Respiratory Rate Blood Pressure O2 Sat by Pulse 99 99 99 Oximetry 05/31/17 05/31/17 05/31/17 04:51 04:56 05:01 Temperature Pulse Rate 95 H 90 95 H Respiratory Rate Blood Pressure O2 Sat by Pulse 99 99 99 Oximetry 05/31/17 05/31/17 05/31/17 05:06 05:11 08:20 Temperature Pulse Rate 91 H 93 H 86 Respiratory Rate Blood Pressure 107/62 O2 Sat by Pulse 97 97 Oximetry 05/31/17 05/31/17 05/31/17 08:21 11:14 13:24 Temperature Pulse Rate 92 H 111 H 98 H Respiratory Rate Blood Pressure 94/55 87/50 O2 Sat by Pulse 100 Oximetry 05/31/17 15:11 Temperature Pulse Rate Respiratory 16 Rate Blood Pressure O2 Sat by Pulse Oximetry - Exam Breasts: deferred Cardiovascular: Regular rate Lungs: Normal air movement Abdomen: Present: normal appearance, soft. Absent: distention, tenderness Uterus: Present: normal FHR: auscultation normal, category 1 Uterine Contraction Monitor Mode: External Cervical Dilatation: 2 Cervical Effacement Percentage: 50 station: -2 Uterine Contraction Pattern: Regular Uterine Tone Measurement Phase: Resting Uterine Contraction Intensity: Moderate Extremities: normal Deep Tendon Reflex Grade: Normal +2 - Labs Labs: Abnormal Labs 05/30/17 05/30/17 21:20 21:20 WBC 12.3 H RBC 3.31 L RDW 12.9 L AST 81 H ALT 106 H Alkaline Phosphatase 253 H Albumin 3.5 L Laboratory Results - last 24 hr 05/30/17 05/30/17 05/30/17 21:20 21:20 21:20 WBC 12.3 H RBC 3.31 L Hgb 10.6 Hct 31.3 MCV 94 MCH 32 MCHC 34 RDW 12.9 L Plt Count 260 Total Bilirubin Direct Bilirubin Indirect Bilirubin AST ALT Alkaline Phosphatase Total Protein Albumin Albumin/Globulin Ratio RPR Nonreactive Blood Type O POSITIVE Antibody Screen Negative 05/30/17 21:20 WBC RBC Hgb Hct MCV MCH MCHC RDW Plt Count Total Bilirubin 0.30 Direct Bilirubin < 0.2 Indirect Bilirubin 0.1 AST 81 H ALT 106 H Alkaline Phosphatase 253 H Total Protein 6.5 Albumin 3.5 L Albumin/Globulin Ratio 1.2 RPR Blood Type Antibody Screen
--- NOTE | 2017-05-31 17:35 | Event Note ---
Date: 05/31/17 (pitocin stopped @ 1700) Pt agrees to POC Stop pit Regular diet PM care Place cervidil @ 1900 All questions addressed
[2017-05-31] MEDS ORDERED: CERVIDIL VG ONE (18:30)
[2017-06-01] MEDS ORDERED: AMBIEN PO ONE (00:13)
[2017-06-01] MEDS: LACTATED RINGERS 1,000 ML IV SCH (05:38)
--- NOTE | 2017-06-01 08:33 | Progress Note ---
Assessment and Plan - Patient Problems (1) Cholestasis during in third trimester Onset Date: ~05/31/17 Current Visit: Yes Status: Acute Plan to address problem: Cervidil removed OOB for AM care Regular diet Will start pitocin per protocol. SVE Pt made aware of nature of serial IOL and that it may take several days. All questions addressed. Subjective - Subjective Date of service: 06/01/17 (Pt OOB to AM care) Principal diagnosis: IOL Cholestasis @ 38w5d; Cevidil PM; Pitocin AM Patient reports: movement normal, contractions Objective - Vital Signs Vital Signs: Vital Signs - 12hr 05/31/17 05/31/17 06/01/17 23:33 23:37 02:06 Temperature 98.0 F Pulse Rate 99 H 81 Respiratory 18 Rate Blood Pressure 122/75 89/52 06/01/17 06/01/17 06/01/17 02:07 02:10 08:19 Temperature 98.4 F Pulse Rate 78 104 H Respiratory 18 Rate Blood Pressure 91/52 113/72 - Exam Breasts: normal Cardiovascular: Regular rate Lungs: Normal air movement Abdomen: Present: normal appearance, soft. Absent: distention, tenderness Uterus: Present: normal FHR: auscultation normal, category 1 Uterine Contraction Monitor Mode: External Uterine Contraction Pattern: Irregular Uterine Contraction Intensity: Mild Extremities: normal Deep Tendon Reflex Grade: Normal +2 - Labs Labs: Abnormal Labs 05/30/17 05/30/17 21:20 21:20 WBC 12.3 H RBC 3.31 L RDW 12.9 L AST 81 H ALT 106 H Alkaline Phosphatase 253 H Albumin 3.5 L Laboratory Results - last 24 hr 05/30/17 21:20 RPR Nonreactive
--- NOTE | 2017-06-01 08:56 | Progress Note ---
Assessment and Plan Pt OOB to shower Return to bed SVE 4,70,-2 AROM clear ISE/IUPC placed Pit started Re-eval as needed. - Patient Problems (1) Cholestasis during in third trimester Onset Date: ~05/31/17 Current Visit: Yes Status: Acute Subjective - Subjective Date of service: 06/01/17 (ctx worsening) Principal diagnosis: IOL Cholestasis @ 38w5d; Cevidil PM; Pitocin AM Patient reports: movement normal, contractions Objective - Vital Signs Vital Signs: Vital Signs - 12hr 05/31/17 05/31/17 06/01/17 23:33 23:37 02:06 Temperature 98.0 F Pulse Rate 99 H 81 Respiratory 18 Rate Blood Pressure 122/75 89/52 06/01/17 06/01/17 06/01/17 02:07 02:10 08:19 Temperature 98.4 F Pulse Rate 78 104 H Respiratory 18 Rate Blood Pressure 91/52 113/72 - Exam Breasts: deferred Cardiovascular: Regular rate Lungs: Normal air movement Abdomen: Present: normal appearance, soft. Absent: distention, tenderness Uterus: Present: normal FHR: auscultation normal, category 1 Uterine Contraction Monitor Mode: Internal Cervical Dilatation: 4 (AROM ) Cervical Effacement Percentage: 70 (ISE/IUPC) station: -2 Uterine Contraction Pattern: Regular Uterine Contraction Intensity: Moderate Extremities: normal Deep Tendon Reflex Grade: Normal +2 - Labs Labs: Abnormal Labs 05/30/17 05/30/17 21:20 21:20 WBC 12.3 H RBC 3.31 L RDW 12.9 L AST 81 H ALT 106 H Alkaline Phosphatase 253 H Albumin 3.5 L Laboratory Results - last 24 hr 05/30/17 21:20 RPR Nonreactive
[2017-06-01] MEDS ORDERED: PITOCin/NS 30 UNIT/500ML 30 UNITS/500 ML BAG IV SCH (09:00)
[2017-06-01] MEDS ORDERED: STADOL ONE (10:52)
[2017-06-01] MEDS ORDERED: STADOL IV PRN ×2 (11:30→12:24)
--- NOTE | 2017-06-01 11:57 | Event Note ---
Date: 06/01/17 (called urgently to room for delivery) pt up in [facility] Kim removed IUPC removed Large BM noted with initial push. Pt examined found to be only 6cm Exp to pt Ptside lying with one leg in [facility]. Pit @ 4 mu. Re-eval as needed and anticipate delivery
[2017-06-01] MEDS ORDERED: NARCAN 2 MG/2 ML ONE (12:31)
[2017-06-01] MEDS ORDERED: METHERGINE IM ONE ×2 (13:09→13:29)
[2017-06-01] MEDS ORDERED: TUCKS PAD TP PRN (13:34)
[2017-06-01] MEDS ORDERED: PHENERGAN PO PRN (13:34)
[2017-06-01] MEDS ORDERED: TYLENOL PO PRN (13:34)
[2017-06-01] MEDS ORDERED: NORCO 5/325 PO PRN (13:34)
[2017-06-01] MEDS ORDERED: BENADRYL PO PRN (13:34)
[2017-06-01] MEDS ORDERED: MILK OF MAGNESIA PO PRN (13:34)
[2017-06-01] MEDS ORDERED: DULCOLAX PR PRN (13:34)
--- NOTE | 2017-06-01 13:51 | Procedure Note ---
OB Delivery Note - Delivery Date of Delivery: 06/01/17 [employer]: VANESA GUARDADO Estimated blood loss: 1000cc - Vaginal Delivery presentation: vertex Delivery position: OA Intrapartum events: hemorrhage Delivery induction: cervidil (1,000ml resolved with oit and methergine IM) Delivery augmentation: pitocin Delivery monitor: internal FHT, internal uterine Route of delivery: Delivery placenta: spontaneous, uterine exploration Delivery cord: 3 umbilical vessels Episiotomy: none Delivery laceration: none Anesthesia: none Delivery comments: Pt completed laboring in knee/chest in knee/chest Baby delivered OA Cord blood obtained Placenta and membrane del complete and intact, 3 vessel cord Pit IVFs Baby to warmer. Profuse bleeding noted Pt returned to lithotomy position Uterus explored external massage Several lg clots passed Methergine IM given. Pt stable Allowed OOB to warmer shower at her request. 8/9, EBL 1,000, Wgt 7-7 Mom and baby remain LDR stable FF @ umb Lochia mod. - A at 1 minute: 8 at 5 minutes: 9 Gender: Male (wgt 7-7)
[2017-06-01] MEDS ORDERED: SODIUM CHLORIDE FLUSH SYRINGE 10 ML IV SCH (14:00)
[2017-06-01] MEDS ORDERED: MOTRIN PO PRN (14:31)
[2017-06-01] MEDS ORDERED: MOTRIN PO SCH (15:00)
[2017-06-01] MEDS: NORCO 5/325 PO PRN ×2 (16:11→22:14)
[2017-06-01] MEDS: METHERGINE PO SCH ×2 (18:02→22:13)
[2017-06-01 21:47] LABS: Hematocrit 30.1 % (30.3-42.9); Hemoglobin 10.2 gm/dl (10.1-14.3)
[2017-06-01] MEDS: FEOSOL PO SCH (22:13)
[2017-06-01] MEDS: COLACE PO SCH (22:13)
[2017-06-02] MEDS: NORCO 5/325 PO PRN ×4 (04:17→23:05)
[2017-06-02] MEDS ORDERED: BOOSTRIX IM ONE (06:00)
[2017-06-02 06:03] LABS: Hemoglobin 8.9 gm/dl (10.1-14.3); Mean Corpuscular HGB Conc 34 % (30-34); Mean Corpuscular Hemoglobin 33 pg (28-32); Mean Corpuscular Volume 95 fl (79-97); Platelet Count 226 K/mm3 (140-440); Red Blood Count 2.75 M/mm3 (3.65-5.03); Red Cell Distribution Width 13.3 % (13.2-15.2)
[2017-06-02 06:11] LABS: White Blood Count 20.3 K/mm3 (4.5-11.0)
[2017-06-02] MEDS: METHERGINE PO SCH (06:52)
--- NOTE | 2017-06-02 08:17 | Progress Note ---
Assessment and Plan patient resting w/ complaints of tailbone pain. Advised to request pain medication as needed. VSSAF, jennifera scant, H&H 8.03/28 (asymptomatic, anemia d/ t acute blood loss.) Will recheck LFTs today. continue pathway. Anticipate d/c home this evening if is stable for d/c. - Patient Problems (1) Cholestasis during in third trimester Onset Date: ~05/31/17 Current Visit: Yes Status: Acute (2) Epilepsy Current Visit: Yes Status: Acute Plan to address problem: patient is to f/u with neurology (3) Elevated liver function tests Current Visit: Yes Status: Acute Plan to address problem: repeat labs (4) Spontaneous vaginal delivery Current Visit: Yes Status: Acute Subjective - Subjective Date of service: 06/02/17 Principal diagnosis: day #1 s/p , cholestasis w/ elevated LFTs Interval history: EDC Calculations LMP: 06/10/2017 Past History : 4 Term Births: 2 Premature Births: 1 Living Children: 2 Para: 3 # 1 Delivery date: 03/24/2007 Weeks Gestation: 39 labor: no Delivery type: Anesthesia type: none Delivery [place] [facility] [place] Sex: Male weight: 5-15 # 2 Delivery date: 05/30/2010 Weeks Gestation: 37 labor: no Delivery type: Delivery location: [facility] Infant Sex: Male weight: 3-16 Comments: stillbirth, breech, not on monitor, "no bones in face" # 3 Delivery date: 05/11/2011 Weeks Gestation: 40 Delivery type: Delivery location: [place] Sex: Female weight: 7-1 Past Medical History: Asthma 0- rare inhaler use Epilepsy - stopped medicine Dilantin and Keppra while --rarely has seizures migraines Sickle Trait ALLERGIC to all ..LILIAM drugs (lidocaine, marcaine) cannot have epidural Past Surgical History: Reviewed history and no changes required: negative Past Medical History Anesthesia Complications: positive, severe allergy to mar/lidocaine Anemia: negative Autoimmune Disorder: negative Bleeding Disorder: negative Blood Transfusions: negative Breast Disease: negative Diabetes: negative Heart Disease: negative Hypertension: negative Hepatitis/Liver Disease: negative Kidney Disease/UTI: negative Neurologic/Epilepsy/Migraines: positive Phlebitis/Varicosities: negative Psychiatric: negative Pulmonary Disease/Asthma: positive Thyroid Disease: negative Hospitalizations: negative Surgery (Non-speech teacher): negative Abnormal PAP: negative Uterine Surgery (not C/S): negative Infection History Hx of STD: none HIV Risk Eval: low risk Hepatitis B Risk Eval: low risk Personal hx. of genital herpes: no Partner hx. of genital herpes: no Varicella/Chicken Pox Status: Previous Disease TB Risk: no Genetic History Congenital Heart Defect: Mom: no Dad: no Robel Disease: Mom: no Dad: no Thalassemia Mom: no Dad: no Neural Tube Defect Mom: no Dad: no Down's Syndrome Mom: no Dad: no Uziel-Sachs Mom: no Dad: no Sickle Cell Disease/Trait Mom: yes Dad: no Hemophilia Mom: no Dad: no Muscular Dystrophy Mom: no Dad: no Cystic Fibrosis Mom: no Dad: no [place] Chorea Mom: no Dad: no Mental Retardation Mom: no Dad: no Fragile X Mom: no Dad: no Other Genetic/Chromosomal Disorder Mom: no Dad: no Child w/other defect Mom: no Dad: no Enviromental Exposures Xray Exposure: no Medication, drug, or alcohol use since LMP: no Chemical/Other Exposure: no Active Medications (reviewed today): PNV () ZOFRAN () Current Allergies (reviewed today): * EPIDURAL (Critical) * ANY FORM OF LIQUID BASE MEDICATION (Critica Patient reports: appetite normal, voiding normally, pain well controlled, ambulating normally, no dizzy ambulation, no nauseated : doing well, bottle feeding Objective - Vital Signs Latest vital signs: Vital Signs Temp Pulse Resp BP BP Pulse Ox 06/02/17 02:40 98.5 F 88 18 108/65 06/01/17 21:54 98.5 F 100 H 18 101/55 06/01/17 15:30 98.6 F 86 18 106/61 100 06/01/17 14:34 100 H 112/68 06/01/17 14:19 104 H 107/68 06/01/17 14:04 99 H 104/61 06/01/17 13:49 99 H 111/71 06/01/17 13:34 107 H 109/68 06/01/17 09:00 97.5 F L 104 H 18 113/72 98 06/01/17 08:19 104 H 113/72 Intake and Output 06/01/17 06/02/1706/02/17 23:59 07:59 15:59 Intake Total 720 Balance 720 Intake: Intake, Free Water 720 Other: # Voids Void 1 - Exam Breasts: Present: normal Cardiovascular: Present: Regular rate Lungs: Present: Clear to auscultation, Normal air movement Abdomen: Present: normal appearance, soft, normal bowel sounds Vulva: both: normal Uterus: Present: normal, firm, fundal height at umbilicus Extremities: Present: normal Deep Tendon Reflex Grade: Normal +2 - Labs Labs: Abnormal lab results 06/01/17 06/02/17 Range/Units 21:16 05:30 WBC 20.3 H (4.5-11.0) K/mm3 RBC 2.75 L (3.65-5.03) M/mm3 Hgb 8.9 L (10.1-14.3) gm/dl Hct 30.1 L 26.0 L (30.3-42.9) % MCH 33 H (28-32) pg
--- NOTE | 2017-06-02 08:49 | Discharge Summary ---
Providers - Providers Date of Admission: 05/30/17 20:19 Date of discharge: 06/02/17 Attending physician: BEE COLLADO Primary care physician: BEE COLLADO Hospitalization Reason for admission: induction of labor (cholestasis w/ evelated LFTs) Delivery: Episiotomy: none Laceration: none Other procedures: none complications: none Discharge diagnosis: IUP at term delivered [place] baby: male Hospital course: uncomplicated vaginal , induction of labor Condition at discharge: Good Disposition: DC-01 TO HOME OR SELFCARE - Discharge Diagnoses (1) Cholestasis during in third trimester Status: Acute (2) Epilepsy Status: Acute (3) Elevated liver function tests Status: Acute (4) Spontaneous vaginal delivery Status: Acute Plan - Discharge Medications Prescriptions: Ibuprofen [Motrin 800 MG tab] 800 mg PO TID PRN #30 tablet PRN Reason: Pain Lidocain2.5%/Prilocai2.5% [Emla] 5 gm TP PRN #1 tube - Provider Discharge Summary Activity: routine, no sex for 6 weeks, no heavy lifting 4 weeks, no strenuous exercise Diet: routine Instructions: routine Additional instructions: [] Smoking cessation referral if applicable(refer to patient education folder for contact #) [] Refer to [facility] [place] [facility] Booklet Call your doctor immediately for: * Fever > 100.5 * Heavy vaginal bleeding ( >1 pad per hour) * Severe persistent headache * Shortness of breath * Reddened, hot, painful area to leg or breast * Drainage or odor from incision. * Keep incision clean and dry at all times and follow doctor's instructions regarding bathing/showering - Follow up plan Follow up: BEE COLLADO MD [Primary Care Provider] - 7 Days (Congratulations! Please call [phone] to schedule your son's circumcision in 1 week and your visit in 4 weeks. bring EMLA cream to your son's appointment and await further instructions. Call for any questions or concerns. )
[2017-06-02] MEDS: FEOSOL PO SCH ×2 (09:32→23:06)
[2017-06-02 09:57] LABS: Alanine Aminotransferase 61 units/L (7-56); Albumin 2.7 g/dL (3.9-5); Albumin/Globulin Ratio 0.9 %; Alkaline Phosphatase 214 units/L (35-129); Total Protein 5.8 g/dL (6.3-8.2)
[2017-06-02 09:58] LABS: Bilirubin,Direct < 0.2 mg/dL (0-0.2)
[2017-06-02] MEDS ORDERED: M-M-R II VACCINE SUB-Q ONE (13:34)
[2017-06-02] MEDS: COLACE PO SCH ×2 (17:26→23:08)
[2017-06-03] MEDS: NORCO 5/325 PO PRN (05:58)
--- NOTE | 2017-06-03 08:46 | Event Note ---
Date: 06/03/17 LFts reviewed still elevated but trending downward. Will con't to monitor outpt.
[2017-06-03 09:13] VITALS: BP 112/76
== END 2017-06-03 09:40 | disposition home or self-care (01) | DRG 774 ==
LOC: LD 20:19 → OB 06-01 15:56
PROVIDERS: ADMIT Obstetrics & Gynecology; ATTEND Obstetrics & Gynecology
PROC: 10E0XZZ Delivery of Products of Conception, External Approach (ICD-10-PCS; principal; 2017-06-01)
PROC: 3E0234Z Introduction of Serum, Toxoid and Vaccine into Muscle, Percutaneous Approach (ICD-10-PCS; 2017-06-01)
PROC: 3E0P7VZ Introduction of Hormone into Female Reproductive, Via Natural or Artificial Opening (ICD-10-PCS; 2017-06-01)
PROC: 10D07Z8 Extraction of Products of Conception, Other, Via Natural or Artificial Opening (ICD-10-PCS; 2017-06-01)
DX: O26.62 Liver and biliary tract disorders in childbirth (principal); O67.8 Other intrapartum hemorrhage; K83.1 Obstruction of bile duct; G43.909 Migraine, unspecified, not intractable, without status migrainosus; D57.3 Sickle-cell trait; G40.909 Epilepsy, unspecified, not intractable, without status epilepticus; O99.52 Diseases of the respiratory system complicating childbirth; O99.354 Diseases of the nervous system complicating childbirth; O99.02 Anemia complicating childbirth; Z3A.38 38 weeks gestation of pregnancy; Z37.0 Single live birth; Z88.8 Allergy status to other drugs, medicaments and biological substances; Z23 Encounter for immunization; O72.1 Other immediate postpartum hemorrhage
CPT/HCPCS: 36415; 59200; 80074; 85014; 85018; 85027; 86592; 86850; 86900; 86901; 90471; J0595; J1200; J2210; J2300; J2310; J2590; J3010; J3410; J7120

== ENCOUNTER 2017-11-03 19:25 | Emergency (ER) | payer SELFPAY ==
[2017-11-03 20:22] VITALS: BP 132/80
[2017-11-03] MEDS ORDERED: FIORICET PO ONE (20:28)
[2017-11-03] MEDS ORDERED: KEPPRA PO ONE (20:28)
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
[2017-11-03] MEDS ORDERED: ZOFRAN ODT PO ONE (21:51)
[2017-11-03] MEDS ORDERED: ATIVAN ONE (21:58)
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
[2017-11-03] MEDS ORDERED: ATIVAN IM ONE (22:45)
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
== END 2017-11-03 23:15 | disposition home or self-care (01) ==
LOC: ED 19:25
DX: S16.1XXA Strain of muscle, fascia and tendon at neck level, initial encounter (principal); S29.012A Strain of muscle and tendon of back wall of thorax, initial encounter; G40.909 Epilepsy, unspecified, not intractable, without status epilepticus; S80.12XA Contusion of left lower leg, initial encounter; V49.59XA Passenger injured in collision with other motor vehicles in traffic accident, initial encounter; Y93.89 Activity, other specified; Y92.89 Other specified places as the place of occurrence of the external cause; Y99.8 Other external cause status; F17.200 Nicotine dependence, unspecified, uncomplicated
CPT/HCPCS: 36415; 70450; 72070; 72100; 72125; 73030; 73590; 84703; 96372; 99284; J2060; Q0162